=== PATIENT | male | born 1995 | race Caucasian/White ===

== ENCOUNTER 2018-11-19 09:02 | Emergency (ER) | payer MEDICAID ==
[~2018-11-19] VITALS: Ht 180.3 cm; Wt 40.8 kg
[2018-11-19 09:10] VITALS: BP_SYST 141
--- NOTE | 2018-11-19 09:13 | NUR ---
Patient to ER bed 8 to gown for evaluation. Side rails up. Report given to Maggy PRICE.
--- NOTE | 2018-11-19 09:20 | NUR ---
ER at bedside examining patient.
--- NOTE | 2018-11-19 09:27 | NUR ---
pt arrives to the ED wioth c/o of a bump over on the penis. Pt does reporty having unprotected sex. No other c/o at the moment.
--- NOTE | 2018-11-19 09:33 | NUR ---
Patient given written and verbal discharge instructions and verbalizes understanding. ER MD discussed with patient the results and treatment provided. Patient in stable condition. ID arm band removed. IV catheter removed intact and dressing applied, no active bleeding.Rx of Bactrium given. Patient educated on pain management and to follow up with PMD. Pain Scale 0/10.Opportunity for questions provided and answered. Medication side effect fact sheet provided.
[2018-11-19 09:40] VITALS: BP_SYST 141
[2018-11-21 02:08] LABS: NEISSERIA GONORRHOEAE NAA Negative (Negative)
[2018-11-21 12:06] LABS: CHLAMYDIA TRACHOMATIS NAA Positive (Negative)
--- NOTE | 2018-11-21 12:22 | NUR ---
Called pt for abnormal lab + chlamydia and needs to come back to ER for proper treatment. Pt states will come in today.
== END 2018-11-19 09:33 | disposition home or self-care (01) ==
LOC: SED 09:02
DX: N50.89 Other specified disorders of the male genital organs (principal)
CPT/HCPCS: 87491; 87591; 99283

== ENCOUNTER 2018-11-21 13:00 | Emergency (ER) | payer MEDICAID ==
[~2018-11-21] VITALS: Ht 180.3 cm; Wt 86.2 kg
[2018-11-21 13:00] VITALS: BP_SYST 148
--- NOTE | 2018-11-21 13:05 | NUR ---
Pt placed in bed 8
--- NOTE | 2018-11-21 13:07 | NUR ---
LAVINIA Kapoor at bedside examining patient.
--- NOTE | 2018-11-21 13:12 | NUR ---
Pt was asked to return for medication to treat chlamydia. Pt complains of more bumps to penis, MD ordered more testing for pt. Pt denies n/v or fever
[2018-11-21] MEDS ORDERED: AZITHROMYCIN 250 MG TABLET PO ONE (13:15)
[2018-11-21] MEDS ORDERED: cefTRIAXone 250 MG VIAL IM ONE (13:15)
[2018-11-21 14:01] VITALS: BP_SYST 148
--- NOTE | 2018-11-21 14:01 | NUR ---
Patient given written and verbal discharge instructions and verbalizes understanding. ER MD discussed with patient the results and treatment provided. Patient in stable condition. ID arm band removed. No Rx given. Patient educated on pain management and to follow up with PMD. Pain Scale 3. Opportunity for questions provided and answered.
[2018-11-24 15:47] LABS: HSV 1 IgG, TYPE SPECIFIC <0.91; HSV 2 IgG, TYPE SPECIFIC <0.91
== END 2018-11-21 14:01 | disposition home or self-care (01) ==
LOC: SED 13:00
DX: A74.9 Chlamydial infection, unspecified (principal); Z20.2 Contact with and (suspected) exposure to infections with a predominantly sexual mode of transmission
CPT/HCPCS: 36415; 86592; 86695; 86696; 96372; 99283; J0696; Q0144; 99284